=== PATIENT | male | born 1990 | race Caucasian/White ===

== ENCOUNTER → 2016-12-13 | Outpatient (CLI) | payer MEDICAID | END | disposition home or self-care (01) | LOC: CARD 15:39 | PROVIDERS: ATTEND Specialist | DX: M34.81 Systemic sclerosis with lung involvement (principal); J44.9 Chronic obstructive pulmonary disease, unspecified; G72.49 Other inflammatory and immune myopathies, not elsewhere classified; E55.9 Vitamin D deficiency, unspecified | CPT/HCPCS: 94010; 94726; 94729 ==